=== PATIENT | male | born 1930 | race Caucasian/White ===

== ENCOUNTER 2017-07-09 17:37 | Emergency (ER) | payer OTHER ==
[2017-07-09 17:56] VITALS: TEMP 97.9
--- NOTE | 2017-07-09 18:52 | EDPHY ---
H & P Time Seen by Provider: 07/09/17 17:44 Smoking Status: Never smoked Physical Exam: 84-year-old male alert and oriented no acute distress, hard of hearing, vital signs stable, afebrile Normocephalic Posterior occipital laceration 4 cm gaping, galea intact TMs no hemotympanum Neck supple, no midline neck tenderness Lungs clear to auscultation bilaterally Heart regular rate and rhythm Abdomen nondistended NABS, soft Extremities no cyanosis clubbing or edema Right shoulder, good range of motion mild tenderness to palpation at AC joint Neuro alert and oriented, no focal deficits, gait intact Constitutional: Initial Vital Signs Temperature (C) 36.6 C 07/09/17 17:51 Heart Rate 91 07/09/17 17:51 Respiratory Rate 20 07/09/17 17:51 Blood Pressure 166/91 H 07/09/17 17:51 O2 Sat (%) 93 07/09/17 17:51 O2 Delivery Mode Room Air Allergies/Adverse Reactions: No Known Allergies Allergy (Verified 07/09/17 17:50) Home Medications: Medication Instructions Recorded Asa Unk Dose 10/13/15 Atorvastatin Unk Dose 10/13/15 Flomax Unk Dose 10/13/15 Lisinopril Unk Dose 10/13/15 Metoprolol Unk Dose 10/13/15 Medical Decision Making - Diagnostics Imaging Results: Imaging Impressions Head CT 07/09/17 18:03 Impression: 1. Mild to moderate age-related atrophy. 2. No hemorrhage, mass effect, or definite acute peripheral infarct. 3. Mild to moderate nonspecific hypodensities in the white matter of bilateral cerebral hemispheres. Differential diagnosis includes microvascular ischemic disease, post-infectious/post-inflammatory sequela, atypical demyelinating disease, or migraine-related sequela. Small white matter lacunar infarcts may also have this appearance. 4. 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 Findings discussed with Mayra Fitzgerald MD at 1845 hour, 07/09/2017. If symptoms worsen, additional imaging may be necessary. Procedures: Procedure note-laceration The wound was irrigated with copious amounts of saline. Xylocaine 2% with epinephrine was used for local anesthetic. Twelve saúl were placed. Patient tolerated procedure well. ED Course/Re-evaluation: Patient seen and evaluated for head injury after a fall while raking leaves. CT head negative CT neck noted dens fracture Patient with scalp laceration, repaired with saúl I consulted the neurosurgeon on-call Dr Madison, he reviewed the CT scan and stated the fracture was quite old and given the patient had no neck pain Did not require a cervical collar or admission or any further evaluation. Impression Scalp laceration Right shoulder contusion Plan Discharge home Saúl out in 10 days Return as needed Follow up with primary care Differential Diagnosis: Head contusion, intracranial bleed, neck strain, neck fracture, concussion Departure - Departure Disposition: Home, Routine, Self-Care Clinical Impression: Laceration of head, Contusion of right shoulder Condition: Good Instructions: Laceration (ED), Staple Care (ED) Additional Instructions: Return for staple removal in 10 days Referrals: GORDO BANKS [Primary Care Provider] - As per Instructions
[2017-07-09 19:35] VITALS: BP 145/82; PULSE 86; RESP 18; O2SAT 94
== END 2017-07-09 19:35 | disposition home or self-care (01) ==
LOC: CED 17:37
PROC: 0HQ0XZZ Repair Scalp Skin, External Approach (ICD-10-PCS; principal; 2017-07-09)
DX: S01.01XA Laceration without foreign body of scalp, initial encounter (principal); S40.011A Contusion of right shoulder, initial encounter; W18.39XA Other fall on same level, initial encounter; Y99.8 Other external cause status; Y93.H1 Activity, digging, shoveling and raking
CPT/HCPCS: 70450-PO; 72125-PO